=== PATIENT | female | born 1950 | race Caucasian/White ===

== ENCOUNTER 2024-06-23 09:53 | Emergency (ER) | payer OTHER, SELFPAY ==
[2024-06-23 09:55] VITALS: BP 155/78
[2024-06-23 10:11] VITALS: BP 160/74
[2024-06-23] MEDS: NSS 1000 IV (10:21)
--- NOTE | 2024-06-23 10:21 | ED.GENMED ---
History of Present Illness
General
Chief Complaint: Headache
Source: patient and family
Exam Limitations: none
Time Seen by Provider: 06/23/24 10:06
Nursing documentation reviewed up to this point in time: agreed with
History of Present Illness
History of Present Illness:
74-year-old female history of migraines last headache 10 years ago presents with left-sided headache nausea vomiting somewhat reminiscent of her prior headaches, she has had some cough, no fever but has had chills, saw her PCP referred here
apparently was told she has left-sided weakness, unable to appreciate any gross left-sided weakness on exam, she has clear mental status mainly complaining of a headache when the left side of her head
Past History
Past History
ED Past Medical History: Other (Migraine)
Social History
Tobacco: Non-smoker
Alcohol: None
Drug: None
Personal:
Living: with family
Employment: Retired
Review of Systems
Review of Systems
All Other Systems: Not applicable
Constitutional: Reports chills; Denies fever
EENT: Reports no symptoms
Respiratory: Reports cough
Cardiac: Reports no symptoms
ABD/GI: Reports nausea and vomiting
Neurological: Reports headache; Denies weakness
Hematologic/Lymphatic: Reports no symptoms
Psychiatric: Reports no symptoms
Phy Exam
Physical Exam
Physical Exam:
Physical Exam
General: Elderly female looks uncomfortable
Neck: No jaundice
Heart: s1/s2 regular rate and rhythm, no murmur. equal radial pulses.
Lungs: no acute respiratory distress. clear bilaterally
Abdomen nontender
Neuro: alert and oriented. no focal neurological deficits
Skin: no rash
Psychiatric: well kept. interactive and cooperative
Extremities: no edema.
Course
Orders/Labs/Results
Orders:
Orders
06/23/24 10:10
CT Head W/o Iv Contrast Urgent
Comment:
Reason For Exam: quiroz
06/23/24 10:14
0.9% Sodium Chloride 1000 ml [Nss] 1,000 ml IV BOLUS
Diphenhydramine [Benadryl] 25 mg IV NOW STA
Metoclopramide [Reglan] 10 mg IV NOW STA
06/23/24 10:15
CR Chest - 2 Views Urgent
Comment:
Reason For Exam: cough
06/23/24 10:25
Complete Blood Count/With Diff Urgent
Comprehensive Metabolic Panel Urgent
PTT Urgent
Prothrombin Time Urgent
06/23/24 11:18
Ketorolac [Toradol] 30 mg IV NOW STA
Abnormal Lab Results
06/23/24
10:25
WBC 11.4 H 10^3/uL
(4.8-10.8)
MCH 31.1 H pg
(27.0-31.0)
Abs Immat Gran (auto) 0.1 H 10^3/uL
(0-0.05)
Absolute Neuts (auto) 8.2 H 10^3/uL
(1.4-6.5)
Absolute Monos (auto) 1.0 H 10^3/uL
(0.1-0.6)
Lymphocytes % 16.3 L %
(20.5-51.1)
Chloride 109 H mmol/L
(98-107)
BUN 19 H mg/dl
(7-17)
Glucose 117 H mg/dl
(70-99)
06/23/24 10:25
06/23/24 10:25
Vital Signs
Initial and Last Documented VS:
Initial Vital Signs
Temp Pulse Resp BP Pulse Ox
97.6 F 89 18 155/78 93
06/23/24 09:55 06/23/24 09:55 06/23/24 09:55 06/23/24 09:55 06/23/24 09:55
Last Documented Vital Signs
Temp Pulse Resp BP Pulse Ox
97.6 F 89 18 134/70 94
06/23/24 09:55 06/23/24 09:55 06/23/24 09:55 06/23/24 12:00 06/23/24 12:15
MDM/Problems Addressed
Differential Diagnosis Includes:
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
MDM/Problems Addressed:
Headache,
Chronic conditions affecting care:
Migraine headache
Acute Exacerbation and/or Progression of Chronic Illness:
Migraine headaches
*Critical Care Note
Total Time (30-74mins, 75-104mins- exclusive of procedures): Not Applicable
Update Note
Update Note:
11:15 AM labs are noted CT noted reevaluation patient is feeling better after fluids Reglan and Benadryl her ocular exam shows pupils 3 mm and reactive not consistent with angle-closure glaucoma
12:20 PM patient feeling better would like to go home
ED Attending Note
-
Portions of this chart may have been created with voice recognition software.� Occasional wrong word or��sound alike� substitutions may have occurred due to the inherent limitations of voice recognition software.
Discharge Plan
Departure
Patient Disposition: Home (Routine Discharge)
Date of Disposition: 06/23/24
Time of Disposition: 12:25
Patient with high blood pressure during this ER visit?: No
Condition: Good
Discharge Problem:
Headache
Instructions: Migraines (DC), Headache, Adult (DC)
Prescriptions:
New
ibuprofen 600 mg tablet
600 mg PO Q8H PRN (Reason: Pain) Qty: 20 0RF
metoclopramide HCl [Reglan] 10 mg tablet
10 mg PO Q8HPRN PRN (Reason: nausea and vomiting) Qty: 10 0RF
Referrals:
Radu Kelley PA-C [Family Provider] - Next open appointment
Activity Restrictions/Additional Instructions:
Treat plenty of fluids, Reglan as needed for nausea vomiting and headache, ibuprofen as needed for headache
Follow-up with your primary care provider return to the ER for worsening symptoms
Interventions
Interventions:
*Risk Screen - Suicide Last Done: 06/23/24 09:57
*General Assessment Last Done: 06/23/24 09:57
*Neglect/Abuse Screening Last Done: 06/23/24 09:57
*ED- Fall Risk Assessment Last Done: 06/23/24 10:23
*ED COVID-19 Vaccine History Last Done: 06/23/24 10:23
*Nursing Disposition Last Done: 06/23/24 13:04
ED- Neurological Assessment Last Done: 06/23/24 10:31
Discharge Date and Time
Discharge Date/Time: 06/23/24 13:04
Print Language: GREEK
[2024-06-23] MEDS: REGLAN 10 MG IV (10:22)
[2024-06-23] MEDS: BENADRYL 25 MG IV (10:22)
[2024-06-23 10:30] VITALS: BMI 29.3
[2024-06-23 10:37] LABS: % Basophils 0.6 % (0-2); % Immature Granulocytes 0.4 % (0-0.5); % Lymphocytes 16.3 % (20.5-51.1); % Monocytes 8.8 % (1.7-9.3); % Neutrophils 71.9 % (42.2-75.2); Absolute Basophils 0.1 10^3/uL (0-0.2); Absolute Eosinophils 0.2 10^3/uL (0-0.7); Absolute Immature Granulocytes 0.1 10^3/uL (0-0.05); Absolute Lymphocytes 1.9 10^3/uL (1.2-3.4); Absolute Neutrophils 8.2 10^3/uL (1.4-6.5); Hematocrit 44.6 % (37.0-47.0); Hemoglobin 14.9 g/dL (12.0-16.0); Mean Corp Hgb Conc. 33.4 g/dL (33.0-37.0); Mean Corpuscular Hgb 31.1 pg (27.0-31.0); Mean Corpuscular Volume 93.1 fL (81.0-99.0); Mean Platelet Volume 9.8 fL (7.4-10.4); Nucleated Red Blood Cells % 0 %; Platelet Count 332 10^3/uL (130-400); Red Blood Cell Count 4.79 10^6/uL (4.20-5.40); White Blood Cell Count 11.4 10^3/uL (4.8-10.8)
[2024-06-23 10:46] LABS: INR 0.91; PT 12.6 Sec (11.4-14.6)
[2024-06-23 10:47] LABS: APTT 25.6 Sec (23.4-35.0)
[2024-06-23 11:00] LABS: ALT (SGPT) 23 U/L (0-35); AST (SGOT) 26 U/L (14-36); Albumin 4.4 g/dl (3.5-5.0); Alkaline Phosphatase 81 U/L (38-126); Blood Urea Nitrogen 19 mg/dl (7-17); Calcium 9.8 mg/dl (8.4-10.2); Carbon Dioxide 28 mmol/L (22-30); Chloride 109 mmol/L (98-107); Estimated Creatinine Clearance 81 ml/min; Glucose 117 mg/dl (70-99); Potassium 4.1 mmol/L (3.5-5.1); Sodium 142 mmol/L (135-145); Total Bilirubin 0.8 mg/dl (0.2-1.3); Total Protein 7.1 g/dl (6.3-8.2); eGFR > 60.00
[2024-06-23] MEDS: TORADOL 30 MG IV (11:21)
[2024-06-23 11:23] VITALS: BP 143/74
[2024-06-23 12:00] VITALS: BP 134/70
--- NOTE | 2024-06-23 12:00 | EDRN ---
Patient reports feeling much better at this time
== END 2024-06-23 13:04 | disposition home or self-care (01) ==
LOC: EMR 09:53
PROVIDERS: EMERGENCY PHYSICIAN Emergency Medicine; FAMILY PHYSICIAN Physician Assistant Medical
DX: R51.9 Headache, unspecified (principal); R11.2 Nausea with vomiting, unspecified
CPT/HCPCS: 99284; 96374; 96375; 96361; 70450; 71046; 80053; 85025; 85610; 85730

== ENCOUNTER → 2025-02-07 12:54 | Outpatient (REF) | payer OTHER, SELFPAY | LOC: HWRAD 12:54 | PROVIDERS: ATTENDING PHYSICIAN Physician Assistant Medical | DX: Z87.891 Personal history of nicotine dependence (principal); R91.8 Other nonspecific abnormal finding of lung field; M85.80 Other specified disorders of bone density and structure, unspecified site | CPT/HCPCS: 71250 ==